=== PATIENT | male | born 1995 | race African-American/Black ===

== ENCOUNTER 2016-09-11 08:00 | Emergency (ER) | payer OTHER ==
--- NOTE | 2016-09-11 08:08 | PROVIDER DOCUMENTATION ---
HPI-General Adult - General Chief Complaint: Choking Stated Complaint: CHOKING Time Seen by Provider: 09/11/16 08:01 Source: EMS Unable to obtain history due to:: other (devel delay, non verbal) Home Medications: Home Medication List Medication Instructions Recorded Confirmed Last Taken Type Clindamycin [Cleocin] 300 mg PO Q6HR #28 capsule 09/11/16 Unknown Rx - History of Present Illness -Gen Adult Nature of Presenting Problems: brought in by EMS for resp distress. They state that fridge was [facility], he got into it. Was found sitting beside fridge in tripod position, resp distress, stridor. Upon arrival in ED, as RT was attepting to suction, ge gagged, and coughed up a entire "nibblet" ear of corn. No more resp distress after that. Location of Pain/Injury: reports: other (throat) Pain Radiation: reports: no radiation Quality of Pain: reports: none Onset/Duration: reports: abrupt, just prior to arrival Timing: reports: gone now Context/Activities at Onset: reports: other (see HPI) Modifying Factors: improves with: other (see HPI) Associated Symptoms: reports: denies symptoms Recently seen or treated by another doctor?: No Review of Systems - Adult - REVIEW OF SYSTEMS - ADULT ROS:: unobtainable per condition Constitutional: reports: no symptoms reported Respiratory: reports: see HPI Past History - Adult - PAST MEDICAL HISTORY-ADULT Review of Records: reports: Medications Reviewed Cardiovascular: reports: other (MVP) Respiratory: reports: asthma Endocrine/Immune: reports: thyroid disorder (hypothyroid), other (hypoglycemia) Additional History: Koolen-Mariposa Syndrome (17q syndrome) - PRIOR SURGERIES/PROCEDURES Surgical/Procedure History: reports: other (cleft palate repair, bilateral tubes in ears, eye sx) - PRIOR HOSPITALIZATIONS Prior Hospitalizations: reports: for other non-related - IMMUNIZATION STATUS Childhood Immunizations: See Nurse Assessment Flu Vaccine: See Nurse Assessment - SOCIAL HISTORY Smoking: non-smoker Physical Exam-General - PHYSICAL EXAM-ADULT Initial Vital Signs Reviewed: Yes - CONSTITUTIONAL General Appearance: appears well, alert, no apparent distress (after coughing up the ear of corn. Is looking about calmly) - EYES Eyes: PERRL/EOMI, pink conjunctivae - HEAD, EARS, NOSE, MOUTH & THROAT HENMT: normocephalic/atraumatic, moist mucous membranes - NECK Neck: full range of motion, supple - RESPIRATORY Respiratory: lungs clear, normal breath sounds - CARDIOVASCULAR Cardiovascular: tachycardia, systolic murmur (III/VII) - GASTROINTESTINAL (ABDOMEN) Abdominal Exam: non tender, soft - GENITOURINARY Male Genitalia: deferred Rectal Exam: deferred - MUSCULOSKELETAL Back Exam: normal inspection, no CVA tenderness, no vertebral tenderness Extremity: normal range of motion - SKIN Integumentary: normal color, normal turgor, warm/dry - NEUROLOGIC Neurologic: grossly normal (as far as what appears to be his baseline) - PSYCHIATRIC Psych/Mental Status: other (non verbal, so cannot test) Progress - PLAN OF CARE/RESULTS Progress/Plan/Lab Results: 1000 Still no distress, has drunk fluids and had no difficulty - XRAY 1 XRAY Study: Chest Impression: Normal XRAY Interpretation: cardiomegaly Departure - Departure Time of Disposition Order: 10:02 DIAGNOSIS: Swallowed foreign body Qualifiers: Encounter type: initial encounter Qualified Code(s): T18.9XXA - Foreign body of alimentary tract, part unspecified, initial encounter Disposition: HOME 01 Certified Medical Emergency: Emergent Condition: Good Additional Instructions: ED Follow Up Instructions: You have been treated by a care provider in the Emergency Department. These instructions are being provided to you so you can have an understanding of how to care for yourself upon discharge. Upon discharge from the Emergency Department, you are responsible for making arrangements for follow-up care by a physician of your choice. Take all prescribed medications as directed. Return to the Emergency Department immediately for any new or worsening symptoms. You may call the Physician Referral phone number at [phone] to obtain a list of Physicians who are taking new patients. Prescriptions: Clindamycin [Cleocin] 300 mg PO Q6HR #28 capsule Instructions: Aspiration Precautions, Aspiration Pneumonia
[2016-09-11 08:14] VITALS: BP 158/114
--- NOTE | 2016-09-11 09:26 | Diag Imaging Result Document ---
PROCEDURE NAME: CHEST-PORTABLE - 09/11/2016 AP PORTABLE CHEST AT 0808 HOURS: FINDINGS: There is cardiomegaly. The inspiration is less optimal than on 02/26/2014. Otherwise, there has been no significant change. IMPRESSION: Cardiomegaly.
== END 2016-09-11 10:15 | disposition home or self-care (01) ==
LOC: P.ED 08:00
DX: T18.9XXA Foreign body of alimentary tract, part unspecified, initial encounter (principal); R06.00 Dyspnea, unspecified; R06.1 Stridor; R11.10 Vomiting, unspecified; R01.1 Cardiac murmur, unspecified; Z87.730 Personal history of (corrected) cleft lip and palate
CPT/HCPCS: 71010